=== PATIENT | female | born 2000 | race Caucasian/White ===

== ENCOUNTER 2025-04-06 09:13 | Emergency (ER) | payer MEDICAID ==
[2025-04-06] MEDS: Cyclobenzaprine 10 MG Tab PO ONE (10:10)
[2025-04-06] MEDS: Ketorolac 30 MG/ML SDV IM ONE (10:11)
== END 2025-04-06 10:15 | disposition home or self-care (01) ==
LOC: FB.ED 09:13
DX: M46.1 Sacroiliitis, not elsewhere classified (principal)
CPT/HCPCS: 96372; 99283; A9270-GY; J1885